=== PATIENT | male | born 1975 | race Asian ===

== ENCOUNTER 2017-05-13 08:00 | Day surgery (SDC) | payer OTHER ==
[~2017-05-13 08:00] MED LIST: ACETAMINOPHEN 1,000 MG/100 ML 100 ML IV ONE; ceFAZolin 2 GM/50 ML 2 GM/50 ML BAG IV ONE
[2017-05-13] MEDS ORDERED: LACTATED RINGERS 1,000 ML IV ONE ×2 (08:09→10:50)
[2017-05-13] MEDS ORDERED: LIDOCAINE-MPF 2% 5 ML VIAL IM ONE (09:00)
[2017-05-13] MEDS ORDERED: PROPOFOL 200 MG/20 ML VIAL IVP ONE (09:00)
[2017-05-13] MEDS ORDERED: DEXAMETHASONE 4 MG/ML VIAL IVP ONE (09:00)
[2017-05-13] MEDS ORDERED: fentaNYL 100 MCG/2 ML VIAL IVP ONE (09:00)
[2017-05-13] MEDS ORDERED: MIDAZOLAM 2 MG/2 ML VIAL IVP ONE (09:00)
[2017-05-13] MEDS ORDERED: ONDANSETRON 4 MG/2 ML VIAL IVP ONE (09:00)
[2017-05-13] MEDS ORDERED: BUPIVACAINE 0.25% PF 30 ML VIAL SUBQ ONE ×2 (09:34)
[2017-05-13 10:47] VITALS: BP 132/87
--- NOTE | 2017-05-13 15:54 | PROCEDURE REPORT ---
DATE OF SURGERY: 05/13/2017 [facility] PREOPERATIVE DIAGNOSIS: Right carpal tunnel syndrome. POSTOPERATIVE DIAGNOSIS: Right carpal tunnel syndrome. OPERATIONS PERFORMED: Right carpal tunnel release. PRIMARY SURGEON: Corinne Reed MD ANESTHESIA PROVIDER: Olivia Saldana CRNA CIRCULATING NURSE: Smiley Jones RN SOCIAL SCIENCE ANALYST: Javi Hong. ANESTHESIA: General via LMA. IV FLUIDS: 400 mL lactated Ringer's. ANTIBIOTICS: Ancef 2 g IV. TOURNIQUET: To the right arm at 200 mmHg for 26 minutes. IMPLANTS: None. COMPLICATIONS: None. SPECIMENS: None. INDICATIONS: This is a 42-year-old male with history of right hand numbness and tingling for several years. He has had corticosteroid injections previously with complete relief for several months; however, his symptoms have continued to return after the injections. The risks, benefits, indications, expectations, and treatment options to include the risks of surgery such as infection, bleeding, damage to neurovascular structures to include the median nerve, damage to flexor tendons of the hand, need for additional surgery, pain, wrist stiffness, deep vein thrombosis, pulmonary embolism, loss of limb, and loss of life were discussed with the patient. All questions were answered, patient elects to proceed with surgery, and informed consent was obtained. PROCEDURE: The patient was met in the preoperative holding area on the morning of surgery where we confirmed that we had the correct patient, planned to do correct procedure on the correct extremity which was the right upper extremity identified. Prior to the patient receiving any medications, I initialed the operative extremity. The patient was then brought back to the operating room in stable condition, placed supine on the operating room table. All bony prominences were well padded. Sequential compressive device was placed on the bilateral lower extremities. General anesthesia was induced without complication and an LMA was placed. The right upper extremity was then prepped and draped in usual sterile fashion. After a final draping, additional ChloraPrep was utilized on the operative site. Three minutes were allowed to elapse and enable the ChloraPrep to dry. We held a surgical timeout where we confirmed that we had the correct patient, planned to do the correct procedure, had the correct extremity, which was the right upper extremity identified. We also confirmed that all the necessary gear was in the room and confirmed sterile , that the patient received preoperative antibiotics, and that no members of the operative team had any concerns. I began by exsanguinating the right upper extremity, inflating the tourniquet to 200 mmHg. I then made an incision in line with the radial border of the fourth digit overlying the carpal tunnel. After sharply incising the skin we utilized bipolar cautery to dissect through the subcuticular layer. We identified the palmar aponeurosis, which was sharply divided. We then identified the transverse carpal ligament. We carefully divided this sharply until a small breach in the transverse carpal ligament was obtained, and then we placed a Weston underneath the remainder of the transverse carpal ligament and sharply incised down on the Weston. We ensured that we transected the entire transverse carpal ligament and that the Weston could pass easily. The underlying median nerve was noted to be normal in appearance. The transverse carpal ligament was noted to be very thickened. We then thoroughly irrigated the wound. The wound was then closed utilizing 3-0 nylon in a horizontal mattress fashion. We then injected 5 mL of 0.25% Marcaine without epinephrine around the wound for postoperative analgesia. The wound was then dressed with Xeroform, plain gauze, and Webril. The patient was then placed into a volar resting splint. All sponge counts and needle counts were correct at conclusion of the case. The patient was awakened from general anesthesia without complication, and taken to the PACU in stable condition. POSTOPERATIVE PLAN: The patient will remain in the splint until I see him back in 10-14 days for his post-op appointment, at which time we will remove his sutures and begin him with range of motion. TD: 05/13/2017 12:25 TONYA
== END 2017-05-13 08:01 | disposition home or self-care (01) ==
LOC: SDS 08:00
PROVIDERS: ATTEND Orthopaedic Surgery
PROC: 01N50ZZ Release Median Nerve, Open Approach (ICD-10-PCS; principal; 2017-05-13 09:00)
DX: G56.01 Carpal tunnel syndrome, right upper limb (principal); Z87.891 Personal history of nicotine dependence
CPT/HCPCS: 64721; J0131; J0690; J7120